=== PATIENT | male | born 1990 | race Caucasian/White ===

== ENCOUNTER 2018-10-29 13:20 | Emergency (ER) | payer BC ==
[~2018-10-29] VITALS: Ht 180.3 cm; Wt 74.0 kg
[2018-10-29] MEDS ORDERED: IBUPROFEN 800MG TABLET PO ONE (15:30)
[2018-10-29 16:18] VITALS: BP 130/73
== END 2018-10-29 16:20 | disposition home or self-care (01) ==
LOC: ER 14:07
DX: S90.02XA Contusion of left ankle, initial encounter (principal); X50.1XXA Overexertion from prolonged static or awkward postures, initial encounter; Y93.89 Activity, other specified; Y92.9 Unspecified place or not applicable
CPT/HCPCS: 73610; 99283